=== PATIENT | female | born 1995 | race Two or more races ===

== ENCOUNTER 2024-01-08 21:56 | Emergency (ER) | payer OTHER ==
[~2024-01-08] VITALS: Ht 162.6 cm; Wt 57.7 kg
[2024-01-08 22:03] VITALS: TEMP 99.4
[2024-01-09] MEDS: TraMADol HCL 50 MG TABLET PO ONE (02:43)
[2024-01-09 04:00] VITALS: BP 111/80; PULSE 89; RESP 18; O2SAT 100
== END 2024-01-09 04:51 | disposition home or self-care (01) ==
LOC: EMS 21:59
DX: S52.121A Displaced fracture of head of right radius, initial encounter for closed fracture (principal); S06.0XAA Concussion with loss of consciousness status unknown, initial encounter; S70.01XA Contusion of right hip, initial encounter; W22.8XXA Striking against or struck by other objects, initial encounter; Y93.89 Activity, other specified; Y92.89 Other specified places as the place of occurrence of the external cause; Y99.8 Other external cause status
CPT/HCPCS: 72040; 73502; 99283; 99284